=== PATIENT | female | born 1960 | race Caucasian/White ===

== ENCOUNTER 2017-11-22 09:31 | Emergency (ER) | payer BC ==
--- NOTE | 2017-11-22 10:29 | CT ---
CT BRAIN WITHOUT CONTRAST: Date: 11/22/17 HISTORY: Headache. FINDINGS: No evidence of acute infarct, hemorrhage, midline shift, or abnormal extra-axial fluid collections ar e seen. The ventricular size is normal and the basilar cisterns are patent. The bony calvarium is int act. There is mucosal disease in the paranasal sinuses. IMPRESSION: No CT evidence of acute intracranial process. POS: [facility]
[2017-11-22] MEDS ORDERED: Metoclopramide HCl 10 MG/2 ML VIAL ONE (10:37)
[2017-11-22] MEDS ORDERED: Acetaminophen 500 MG TAB ONE (10:38)
[2017-11-22] MEDS ORDERED: diphenhydrAMINE 50 MG/ML VIAL ONE (11:23)
[2017-11-22] MEDS ORDERED: Ketorolac Tromethamine 30 MG/ML VIAL ONE (11:38)
--- NOTE | 2017-12-12 15:12 | EKG ---
Test Reason : Blood Pressure : / mmHG Vent. Rate : 066 BPM Atrial Rate : 066 BPM P-R Int : 154 ms QRS Dur : 088 ms QT Int : 412 ms P-R-T Axes : 044 -21 046 degrees QTc Int : 431 ms Normal sinus rhythm Septal infarct , age undetermined Abnormal ECG Confirmed by NICOLE MORGAN ([id number]), offline editor KIRILL ZELAYA ([id number]) on 12/12/2017 3:12:05 PM Referred By: EDDIE Confirmed By:NICOLE MORGAN
== END 2017-11-22 12:46 | disposition home or self-care (01) ==
LOC: ERS 09:31
DX: R51 Headache (principal); E11.9 Type 2 diabetes mellitus without complications; E78.5 Hyperlipidemia, unspecified; F17.210 Nicotine dependence, cigarettes, uncomplicated; I10 Essential (primary) hypertension; Z79.84 Long term (current) use of oral hypoglycemic drugs; Z79.899 Other long term (current) drug therapy
CPT/HCPCS: 70450; 93005; 96365; 96375; J1200; J1885; J2765